=== PATIENT | male | born 1950 | race Caucasian/White ===

== ENCOUNTER 2016-08-12 13:24 | Emergency (ER) | payer OTHER ==
--- NOTE | ~2016-08-12 | CR281 ---
[facility] A Service of [facility] RADIOLOGY TEXT RESULTS PATIENT: ROBBIE HUNT SR LOCATION: [facility] : 54 UNIT #: [id number] AGE: [address]: Gillian Lanier SEX: M ORDER DR: [id number] [facility] [address]. [place], [place] [address] [id number] E MR#: [id number] Acc #: [id number] NAME: ROBBIE HUNT SR : 1950 SEX: M STUDY DATE/TIME: 08/12/2016 13:10 UNIT: [facility] ROOM: STUDY DESCRIPTION: CR Wrist Min 3 View Lt Attending Physician: Gillian Lanier P.A.-C. Ordering Physician: Gillian Lanier P.A.-C. Primary Care Physician: Ami Lewis M.D. MEDICAL IMAGING REPORT This report is preliminary unless electronic signature is present EXAM Left wrist 08/12/2016. INDICATION 66-year-old male who fell and has bruising and swelling of the left wrist and left knee since a fall yesterday. TECHNIQUE 3 views left wrist. COMPARISON No comparisons. TECHNIQUE Bones are osteoporotic. There is soft tissue swelling about the left wrist. On the frontal and oblique projections there is a subtle hairline lucency through the bony cortex along the anatomically lateral aspect of the distal radius at the junction of the shaft and metadiaphysis. Findings are suspicious for a hairline nondisplaced fracture. Correlate with patient point tenderness. There are degenerative changes in the radiocarpal and ulnocarpal joints with associated CPPD. Degenerative changes of the proximal distal carpal rows present as well. Alignment is preserved. IMPRESSION 1. The bones are osteoporotic. Findings are suspicious for a hairline nondisplaced fracture at the junction of the radial shaft and radial metadiaphysis on the frontal and oblique views. Correlate with patient point tenderness. This localizes to the anatomically lateral aspect of the distal radius. 2. Associated soft tissue swelling. 3. Degenerative changes in the proximal and distal carpal rows and radiocarpal and ulnar carpal joints with CPPD. STS. [facility] A Service of [facility] & [facility] RADIOLOGY TEXT RESULTS PATIENT: ROBBIE HUNT SR LOCATION: [facility] : 54 UNIT #: [id number] AGE: [address]: Gillian Lanier SEX: M ORDER DR: Dictated by... Maximiliano Caba M.D. THIS IS AN ELECTRONICALLY VERIFIED REPORT Maximiliano Caba M.D. at 08/12/2016 3:58 PM JLY/americo TD: 08/12/2016 14:00 JOB #: [id number] MEDICAL IMAGING REPORT COPY
--- NOTE | ~2016-08-12 | CR172 ---
[facility] A Service of [facility] RADIOLOGY TEXT RESULTS PATIENT: ROBBIE HUNT SR LOCATION: [facility] : 54 UNIT #: [id number] AGE: [address]: Gillian Lanier SEX: M ORDER DR: [id number] [facility] [address] [facility]. [place], [place] [address] [id number] E MR#: [id number] Acc #: [id number] NAME: ROBBIE HUNT SR : 1950 SEX: M STUDY DATE/TIME: 08/12/2016 13:09 UNIT: [facility] ROOM: STUDY DESCRIPTION: CR Knee 3 Views Lt Attending Physician: Gillian Lanier P.A.-C. Ordering Physician: Gillian Lanier P.A.-C. Primary Care Physician: Ami Lewis M.D. MEDICAL IMAGING REPORT This report is preliminary unless electronic signature is present EXAM Left knee, 08/12/2016. HISTORY Fell; bruising and swelling of the left wrist and left knee since yesterday after the fall. TECHNIQUE 3 views, left knee. COMPARISON STUDIES No comparisons. FINDINGS The bones are osteoporotic. On the frontal projection, there is an essentially nondisplaced fracture of the junction of the head of the fibula and proximal third shaft fibula. It is not well demonstrated on the lateral projection, but probably faintly visualized posteriorly. Correlate with patient point tenderness. There is no other evidence of acute fracture. No distinct joint effusion. Atherosclerotic calcifications are present. IMPRESSION There is a fracture of the proximal fibula at the junction of the fibular head and fibular shaft, best seen on the frontal view. Please note that this dictation did not become available for review or signature until after 7am 08/13/16 STAT * RESULT [facility] A Service of [facility] RADIOLOGY TEXT RESULTS PATIENT: ROBBIE HUNT SR LOCATION: [facility] : 52 UNIT #: [id number] AGE: [address]: Gillian Lanier SEX: M ORDER DR: Dictated by... Maximiliano Caba M.D. THIS IS AN ELECTRONICALLY VERIFIED REPORT Maximiliano Caba M.D. at 08/13/2016 4:14 PM DARREN/jayme TD: 08/12/2016 13:56 JOB #: [id number] MEDICAL IMAGING REPORT COPY
--- NOTE | ~2016-08-12 | CR252 ---
[facility] A Service of [facility] RADIOLOGY TEXT RESULTS PATIENT: ROBBIE HUNT SR LOCATION: [facility] : 52 UNIT #: [id number] AGE: [address]: Gillian Lanier SEX: M ORDER DR: [id number] [place] [id number] [facility]. [place], [place] [address] [id number] E MR#: [id number] Acc #: [id number] NAME: ROBBIE HUNT SR : 1950 SEX: M STUDY DATE/TIME: 08/12/2016 14:05 UNIT: [facility] ROOM: STUDY DESCRIPTION: CR Tibia and Fibula 2 Views Lt Attending Physician: Gillian Lanier P.A.-C. Ordering Physician: Gillian Lanier P.A.-C. Primary Care Physician: Ami Lewis M.D. MEDICAL IMAGING REPORT This report is preliminary unless electronic signature is present EXAM Tib-fib on the left, 08/12/2016. INDICATIONS Left leg swelling. Fell yesterday. TECHNIQUE 2 views of the left tib-fib. COMPARISON No comparisons. FINDINGS The bones are osteopenic. On both the frontal and lateral projections imaging features demonstrate a subtle complete essentially nondisplaced fracture of the proximal fibula at the junction of the fibular head and proximal shaft of the fibula. Correlate with patient point tenderness. There is otherwise no evidence of acute fracture. IMPRESSION 1. Complete but essentially nondisplaced fracture of the junction of the head of the fibula and proximal fibular shaft. Dictated by... Maximiliano Caba M.D. THIS IS AN ELECTRONICALLY VERIFIED REPORT Maximiliano Caba M.D. at 08/12/2016 3:01 PM Jere TD: 08/12/2016 14:26 JOB #: [id number] [facility] A Service of [facility] RADIOLOGY TEXT RESULTS PATIENT: ROBBIE HUNT LOCATION: [facility] #: [id number] : 54 UNIT #: [id number] AGE: [address]: Gillian Lanier SEX: M ORDER DR: MEDICAL IMAGING REPORT COPY
[~2016-08-12 13:24] MED LIST: ALB/IPRATROPIUM/1 E1 INH; ALBUTEROL IH; ALDACTAZIDE 25/1 TAB PO; ASPIRIN PO; ASPIRIN81 MG PO; BACTROBAN22 GM TP; BAYER ASPIRIN325 M1 PO; BENICAR HCT 20-1 TA1 PO; CELEBREX50 MG PO; COMBIVENT INH14.7 GM INH; COMBIVENT14.7 GM INH; FOLIC ACID1 MG PO; HYDROCHLOROTHIA25 MG PO; K-DUR20 ME1 DOB; KLONOPIN PO; LEVAQUIN PO; LEXAPRO PO; LIBRIUM25 M1 PO; LISINOPRIL20 MG PO; LORTAB 10/500 T1 TAB PO; LORTAB 5/500 TA1 TA1 PO; METOPROLOL TAR25 MG PO; METOPROLOL TART25 MG PO; MORPHINE SULFAT30 M6 PO; NO MEDICATIONS; NORVASC PO; NORVASC10 MG PO; PAXIL PO; PEGASUS IM; PHENERGAN PO; PREDNISONE PO; PRILOSEC40 MG PO; PRIMACORT TOP; REBETOL200 MG PO; ROBAXIN500 MG PO; SYMBICORT INH; THIAMINE HCL100 M1 PO; VISTARIL PO; VOLTAREN75 MG PO; ZESTRIL10 MG PO; ZITHROMAX PO; ZOLOFT PO
== END 2016-08-12 15:24 | disposition home or self-care (01) ==
LOC: CFTX 13:24
DX: S82.832A Other fracture of upper and lower end of left fibula, initial encounter for closed fracture (principal); S52.502A Unspecified fracture of the lower end of left radius, initial encounter for closed fracture; I10 Essential (primary) hypertension; J44.9 Chronic obstructive pulmonary disease, unspecified; W17.89XA Other fall from one level to another, initial encounter; Y92.828 Other wilderness area as the place of occurrence of the external cause
CPT/HCPCS: 29125; 29505; 73110; 73562; 73590; 99284

== ENCOUNTER 2016-08-21 14:10 | Emergency (ER) | payer OTHER ==
--- NOTE | ~2016-08-21 | CR281 ---
[facility] A Service of [facility] RADIOLOGY TEXT RESULTS PATIENT: ROBBIE HUNT SR LOCATION: [facility] : 54 UNIT #: [id number] AGE: [address]: Keturah Fiore SEX: M ORDER DR: [id number] [facility] [address]. [place], [place] [address] [id number] E MR#: [id number] Acc #: [id number] NAME: ROBBIE HUNT SR : 1950 SEX: M STUDY DATE/TIME: 08/21/2016 13:45 UNIT: [facility] ROOM: STUDY DESCRIPTION: CR Wrist Min 3 View Lt Attending Physician: Keturah Fiore Pa-C Ordering Physician: Keturah Fiore Pa-C Primary Care Physician: Ami Lewis M.D. MEDICAL IMAGING REPORT This report is preliminary unless electronic signature is present EXAM Left wrist, 08/21 INDICATIONS Pain in the wrist. Fall with fracture 9 days ago. FINDINGS 3 views of the left wrist are compared with 08/12/2016. Again seen is osteopenia. There is marked degenerative disease in the wrist. Again seen is the distal radial fracture predominantly involving the metaphysis. It is more conspicuous today but is otherwise unchanged. There is chronic calcification in the TFCC. There is chronic spurring about the ulnar styloid. IMPRESSION Fracture line in the distal radius is slightly more conspicuous but otherwise unchanged from 08/12/2016. No significant displacement. No new fractures. Dictated by... Corky Servin Jr., M.D. THIS IS AN ELECTRONICALLY VERIFIED REPORT Corky Servin Jr., M.D. at 08/22/2016 5:49 AM RLK/anuel TD: 08/21/2016 23:17 JOB #: [id number] MEDICAL IMAGING REPORT [facility] A Service of [facility] RADIOLOGY TEXT RESULTS PATIENT: ROBBIE HUNT SR LOCATION: [facility] #: [id number] : 54 UNIT #: [id number] AGE: [address]: Keturah Fiore SEX: M ORDER DR: Page 1 of 1 COPY
--- NOTE | ~2016-08-21 | CR252 ---
[facility] A Service of [facility] RADIOLOGY TEXT RESULTS PATIENT: ROBBIE HUNT SR LOCATION: [facility] : 54 UNIT #: [id number] AGE: [address]: Keturah Fiore SEX: M ORDER DR: [id number] [facility] [address] [facility] [address] [facility]. [place], [place] [address] [id number] E MR#: [id number] Acc #: [id number] NAME: ROBBIE HUNT SR : 1950 SEX: M STUDY DATE/TIME: 08/21/2016 13:45 UNIT: [facility] ROOM: STUDY DESCRIPTION: CR Tibia and Fibula 2 Views Lt Attending Physician: Keturah Fiore Pa-C Ordering Physician: Keturah Fiore Pa-C Primary Care Physician: Ami Lewis M.D. MEDICAL IMAGING REPORT This report is preliminary unless electronic signature is present EXAM Left tib-fib, 08/21/2016 INDICATION Pain in the left lower leg from 9 days ago after a fall. Followup fracture of the fibula. FINDINGS 3 views of the left lower leg are compared with 08/12/2016. The appearance of the proximal fibular fracture is radiographically stable. No new fractures are seen. The patient is osteopenic. IMPRESSION Stable appearance of a proximal fibula fracture. Dictated by... Corky Servin Jr., M.D. THIS IS AN ELECTRONICALLY VERIFIED REPORT Corky Servin Jr., M.D. at 08/22/2016 5:49 AM PADMAJA/catie TD: 08/21/2016 23:09 JOB #: [id number] MEDICAL IMAGING REPORT Page 1 of 1 COPY
== END 2016-08-21 15:17 | disposition home or self-care (01) ==
LOC: CFTX 14:10
DX: Z76.0 Encounter for issue of repeat prescription (principal); S52.502D Unspecified fracture of the lower end of left radius, subsequent encounter for closed fracture with routine healing; F17.210 Nicotine dependence, cigarettes, uncomplicated; J44.9 Chronic obstructive pulmonary disease, unspecified; I10 Essential (primary) hypertension; Z98.890 Other specified postprocedural states; X58.XXXD Exposure to other specified factors, subsequent encounter
CPT/HCPCS: 73110; 73590; 99284

== ENCOUNTER 2016-11-21 10:31 | Emergency (ER) | payer OTHER ==
--- NOTE | ~2016-11-21 | CR72 ---
[facility] A Service of [facility] & [facility] RADIOLOGY TEXT RESULTS PATIENT: ROBBIE HUNT SR LOCATION: [facility] : 52 UNIT #: [id number] AGE: [address]: Bradley Ryder MD SEX: M ORDER DR: [id number] [facility] [address]. [place], [place] [address] [id number] E MR#: [id number] Acc #: [id number] NAME: ROBBIE HUNT SR : 1950 SEX: M STUDY DATE/TIME: 11/21/2016 11:43 UNIT: [facility] ROOM: STUDY DESCRIPTION: CR Chest Single View Portable Attending Physician: Bradley Ryder M.D. Ordering Physician: Bradley Ryder M.D. Primary Care Physician: Ami Lewis M.D. MEDICAL IMAGING REPORT This report is preliminary unless electronic signature is present EXAM PA and lateral chest radiograph INDICATION Chest pain and shortness of breath starting today. FINDINGS Heart size is within normal limits for portable technique. Patient does have background changes of COPD. Stable calcified nodule is seen within the left upper lobe. No acute infiltrates are identified. Dictated by... Yvonne Kamara M.D. THIS IS AN ELECTRONICALLY VERIFIED REPORT Yvonne Kamara M.D. at 11/23/2016 3:25 PM BLAYNE/leigha TD: 11/23/2016 08:40 JOB #: [id number] MEDICAL IMAGING REPORT Page 1 of 1 COPY
--- NOTE | ~2016-11-21 | EKG ---
PATIENT: ROBBIE HUNT UNIT #: [id number] Ventricular Rate: 102 BPM Atrial Rate: 102 BPM P-R Interval: 134 ms QRS Duration: 76 ms Q-T Interval: 360 ms QTC Calculation(Bezet): 469 ms P [place]: 72 degrees Calculated R [place]: 44 degrees Calculated T [place]: 84 degrees Diagnosis Line: Sinus tachycardia with frequent Premature Diagnosis Line: ventricular complexes Diagnosis Line: Possible Left atrial enlargement Diagnosis Line: Left ventricular hypertrophy Diagnosis Line: Abnormal ECG Diagnosis Line: When compared with ECG of 01-FEB-2016 06:01, Diagnosis Line: Premature ventricular complexes are now Present Diagnosis Line: Confirmed by RAPHAEL WYMAN MD ([id number]) on Diagnosis Line: 11/22/2016 7:22:49 AM INTERPRETING : TOÑITO
[2016-11-21 11:52] LABS: BASOPHIL# 0.1 X10e3 (0-0.3); DIFF IND YES; EOSINOPHIL# 1.9 X10e3 (0-0.7); EOSINOPHIL% 21.7 % (0.0-7.0); HEMATOCRIT 43.9 % (38.0-50.0); HEMOGLOBIN 14.6 gm/dL (13.0-16.0); LYMPHOCYTE# 1.3 X10e3 (1.0-3.5); LYMPHOCYTE% 15.1 % (17.0-45.0); MEAN CELL VOLUME 92.4 FL (83-96); MEAN CORPUSCULAR HEMOGLOBIN 30.8 PG (28-34); MEAN CORPUSCULAR HGB CONC 33.3 g/dL (30-36); MEAN PLATELET VOLUME 7.1 FL (6.5-11.5); MONOCYTE# 0.9 X10e3 (0-1.0); NEUTROPHIL# 4.5 X10e3 (1.5-7.1); NEUTROPHIL% 52.2 % (40-75); PLATELET COUNT 398 X10e3 (140-420); RED BLOOD COUNT 4.75 X10e (3.90-5.60); RED CELL DISTRIBUTION WIDTH 14.7 % (11.0-15.5); WHITE BLOOD COUNT 8.6 X10e3 (4.0-10.5)
[2016-11-21 12:01] LABS: POC - CKMB 2.3 ng/mL (0.0-7.9); POC - TROPONIN <0.05 ng/mL (<=0.05)
[2016-11-21 12:13] LABS: BILIRUBIN, DIRECT 0.1 mg/dL (0.0-0.2); BILIRUBIN,INDIRECT 0.1 mg/dL (0.0-0.9); BILIRUBIN,TOTAL 0.2 mg/dL (0.2-2.0); BUN/CREATININE RATIO 17.14; CREATININE SERUM 0.7 mg/dL (0.6-1.4); GLOM FILT RATE Estimated 99.8 mL/min (>60); POTASSIUM 4.2 mmol/L (3.5-5.1); PROTEIN TOTAL SERUM 7.7 g/dL (6.0-8.3)
[2016-11-21 12:14] LABS: ANISOCYTOSIS SL; PLATELET ESTIMATE NORMAL (NORMAL)
[2016-11-21 13:33] LABS: POC - CKMB 2.2 ng/mL (0.0-7.9); POC - TROPONIN <0.05 ng/mL (<=0.05)
== END 2016-11-21 14:46 | disposition home or self-care (01) ==
LOC: CED 10:31
PROVIDERS: Emergency Medicine
DX: R07.89 Other chest pain (principal); I11.0 Hypertensive heart disease with heart failure; I50.9 Heart failure, unspecified; F17.200 Nicotine dependence, unspecified, uncomplicated
CPT/HCPCS: 36415; 71010; 80048; 80076; 82553; 84484; 85025; 93005; 96374; 99285; J2270

== ENCOUNTER → 2016-12-14 | Outpatient (CLI) | payer OTHER ==
--- NOTE | ~2016-12-14 | CR252 ---
[facility] A Service of [facility] RADIOLOGY TEXT RESULTS PATIENT: ROBBIE HUNT SR LOCATION: [facility] : 52 UNIT #: [id number] AGE: [address]: Ami Lewis MD SEX: M ORDER DR: [id number] [facility] [address] [address] [facility]. [place], [place] [address] [id number] O MR#: [id number] Acc #: [id number] NAME: ROBBIE HUNT SR : 1950 SEX: M STUDY DATE/TIME: 12/14/2016 10:54 UNIT: [facility] ROOM: STUDY DESCRIPTION: CR Tibia and Fibula 2 Views Lt Attending Physician: Ami Lewis M.D. Ordering Physician: Ami Lewis M.D. Primary Care Physician: Ami Lewis M.D. MEDICAL IMAGING REPORT This report is preliminary unless electronic signature is present EXAM Left tibia and fibula, 12/14/2016, [facility]. HISTORY 66-year-old male patient with continuing pain in the lower leg following a fracture in August of this year. Symptoms x3 months. Patient fell at that time. COMPARISON STUDIES 08/12/2016, 08/21/2016 FINDINGS AP and lateral views of the left tibia and fibula demonstrate the old proximal fibular fracture. It is satisfactorily aligned and there appears to be solid callus formation indicating healing. I see no adjacent soft tissue swelling in this area. The remaining fibula and tibia are intact. No identified soft tissue swelling. IMPRESSION Complete healing of the proximal fibular fracture with callus formation present. Negative left tibia and fibula otherwise. Dictated by... Idris Shah M.D. THIS IS AN ELECTRONICALLY VERIFIED REPORT Idris Shah M.D. at 12/14/2016 4:57 PM Harshil TD: 12/14/2016 15:54 JOB #: [id number] [facility] A Service of [facility] RADIOLOGY TEXT RESULTS PATIENT: ROBBIE HUNT SR LOCATION: [facility] #: [id number] : 54 UNIT #: [id number] AGE: [address]: Ami Lewis MD SEX: M ORDER DR: MEDICAL IMAGING REPORT Page 1 of 1 COPY
== END | disposition home or self-care (01) ==
LOC: CRAD 10:24
DX: S82.832A Other fracture of upper and lower end of left fibula, initial encounter for closed fracture (principal); L84 Corns and callosities
CPT/HCPCS: 73590